=== PATIENT | female | born 1975 | race Caucasian/White ===

== ENCOUNTER 2017-05-25 03:02 | Emergency (ER) | payer OTHER ==
[~2017-05-25] VITALS: Ht 162.6 cm; Wt 67.6 kg
[2017-05-25 03:17] VITALS: BP 163/111
== END 2017-05-25 04:27 | disposition left against medical advice (07) ==
LOC: ED 03:02
DX: Z53.21 Procedure and treatment not carried out due to patient leaving prior to being seen by health care provider (principal)

== ENCOUNTER 2018-07-04 08:57 | Emergency (ER) | payer OTHER ==
[~2018-07-04] VITALS: Ht 162.6 cm; Wt 67.6 kg
[2018-07-04 08:59] VITALS: Ht 162.6 cm; Wt 67.6 kg
[2018-07-04 10:43] VITALS: BP 138/71
== END 2018-07-04 10:43 | disposition home or self-care (01) ==
LOC: ED 08:57
DX: T39.315A Adverse effect of propionic acid derivatives, initial encounter (principal); Y92.89 Other specified places as the place of occurrence of the external cause; F17.210 Nicotine dependence, cigarettes, uncomplicated
CPT/HCPCS: J1200; J2930

== ENCOUNTER 2018-07-21 17:07 | Emergency (ER) | payer OTHER ==
[~2018-07-21] VITALS: Ht 162.6 cm; Wt 68.0 kg
[2018-07-21 17:23] VITALS: BP 148/102; Ht 162.6 cm; Wt 68.0 kg
== END 2018-07-21 20:08 | disposition left against medical advice (07) ==
LOC: ED 17:07
DX: Z53.21 Procedure and treatment not carried out due to patient leaving prior to being seen by health care provider (principal)

== ENCOUNTER 2018-07-29 13:40 | Emergency (ER) | payer OTHER ==
[~2018-07-29] VITALS: Ht 167.6 cm; Wt 44.3 kg
[2018-07-29 13:55] VITALS: Ht 167.6 cm; Wt 44.3 kg
[2018-07-29 15:15] LABS: CALCIUM 8.9 mg/dL (8.5-10.1); CARBON DIOXIDE 22.1 mmol/L (21-32); CHLORIDE SERUM 102 mmol/L (98-107); GFR1 > 60 mL/min; GLUCOSE SERUM 123 mg/dL (74-106); POTASSIUM SERUM 3.1 mmol/L (3.5-5.1); SODIUM SERUM 137 mmol/L (136-145)
[2018-07-29 16:06] VITALS: BP 136/92
[2018-07-29 17:03] LABS: AMPHETAMINE QUAL UR POSITIVE (See below)
== END 2018-07-29 16:30 | disposition home or self-care (01) ==
LOC: ED 13:40
PROVIDERS: Emergency Medicine
DX: R22.0 Localized swelling, mass and lump, head (principal); T39.015A Adverse effect of aspirin, initial encounter; I10 Essential (primary) hypertension; Z88.6 Allergy status to analgesic agent; Y92.89 Other specified places as the place of occurrence of the external cause
CPT/HCPCS: J1200; J2930; J3490; J7030

== ENCOUNTER 2019-09-01 15:11 | Emergency (ER) | payer OTHER ==
[~2019-09-01] VITALS: Ht 162.6 cm; Wt 71.7 kg
[2019-09-01 15:25] VITALS: Ht 162.6 cm; Wt 71.7 kg
[2019-09-01 17:28] LABS: BASOPHIL % 0.5 % (0-2); CALCIUM 8.5 mg/dL (8.5-10.1); CARBON DIOXIDE 29.2 mmol/L (21-32); CHLORIDE SERUM 101 mmol/L (98-107); CREATININE SERUM 0.8 mg/dL (0.6-1.0); GFR1 > 60 mL/min; GLUCOSE SERUM 106 mg/dL (74-106); PLATELET COUNT 274 x10^3mcL (130-400); POTASSIUM SERUM 3.5 mmol/L (3.5-5.1); SODIUM SERUM 138 mmol/L (136-145)
[2019-09-01 17:31] LABS: UA SPECIFIC GRAVITY >=1.030 (1.005-1.035); microscopic required? YES; urine erythrocyte 1+ (NEGATIVE)
[2019-09-01 17:33] LABS: RED CELL DISTRIBUTION WIDTH 14.6 % (11.5-14.5)
[2019-09-01 17:35] LABS: AMPHETAMINE QUAL UR POSITIVE (See below)
[2019-09-01 17:40] LABS: ALBUMIN 4.1 g/dL (3.4-5.0); ALKALINE PHOSPHATASE 88 U/L (46-116); ALT/SGPT 79 U/L (14-59); AST/SGOT 45 U/L (15-37); BILIRUBIN TOTAL 0.3 mg/dL (0.20-1.00); CHOLESTEROL 168 mg/dL (<200); HDL CHOLESTEROL 48 mg/dL (40-60); LIPASE 239 IU/L (73-393); MAGNESIUM 2.1 mg/dL (1.8-2.4); T4(THYROXINE) 8.2 ug/dL (4.7-13.3); TOTAL PROTEIN, SERUM 7.8 g/dL (6.4-8.2)
[2019-09-01 19:18] VITALS: BP 121/82
== END 2019-09-01 19:18 | disposition home or self-care (01) ==
LOC: ED 15:11
PROVIDERS: Emergency Medicine
DX: K76.0 Fatty (change of) liver, not elsewhere classified (principal); F19.10 Other psychoactive substance abuse, uncomplicated; F10.20 Alcohol dependence, uncomplicated; I10 Essential (primary) hypertension; F17.210 Nicotine dependence, cigarettes, uncomplicated; Z71.6 Tobacco abuse counseling; Z88.6 Allergy status to analgesic agent; Z88.8 Allergy status to other drugs, medicaments and biological substances
CPT/HCPCS: 82962; 99406; G0480; J3490; Q0092

== ENCOUNTER 2019-09-05 09:50 | Emergency (ER) | payer OTHER ==
[~2019-09-05] VITALS: Ht 162.6 cm; Wt 72.1 kg
[2019-09-05 09:55] VITALS: Ht 162.6 cm; Wt 72.1 kg
[2019-09-05 12:21] VITALS: BP 147/93
== END 2019-09-05 12:24 | disposition home or self-care (01) ==
LOC: ED 09:50
DX: S20.222A Contusion of left back wall of thorax, initial encounter (principal); F10.239 Alcohol dependence with withdrawal, unspecified; I10 Essential (primary) hypertension; Z88.6 Allergy status to analgesic agent; Z88.8 Allergy status to other drugs, medicaments and biological substances; W11.XXXA Fall on and from ladder, initial encounter; Y93.89 Activity, other specified; Y92.89 Other specified places as the place of occurrence of the external cause; Y99.8 Other external cause status

== ENCOUNTER 2020-04-02 23:30 | Emergency (ER) | payer OTHER ==
[~2020-04-02] VITALS: Ht 162.6 cm; Wt 70.8 kg
[2020-04-02 23:33] VITALS: BP 147/96; Ht 162.6 cm; Wt 70.8 kg
[2020-04-03 00:30] LABS: BASOPHIL % 0.7 % (0-2); PLATELET COUNT 239 x10^3mcL (130-400); RED CELL DISTRIBUTION WIDTH 13.8 % (11.5-14.5)
[2020-04-03 00:36] LABS: CALCIUM 9.6 mg/dL (8.5-10.1); CARBON DIOXIDE 25.9 mmol/L (21-32); CHLORIDE SERUM 100 mmol/L (98-107); CREATININE SERUM 0.9 mg/dL (0.6-1.0); GFR1 > 60 mL/min; GLUCOSE SERUM 131 mg/dL (74-106); POTASSIUM SERUM 4.2 mmol/L (3.5-5.1); SODIUM SERUM 135 mmol/L (136-145)
[2020-04-03 00:41] LABS: ALKALINE PHOSPHATASE 106 U/L (46-116); ALT/SGPT 143 U/L (14-59); AST/SGOT 125 U/L (15-37); BILIRUBIN TOTAL 0.3 mg/dL (0.20-1.00); TOTAL PROTEIN, SERUM 7.5 g/dL (6.4-8.2)
== END 2020-04-03 00:56 | disposition left against medical advice (07) ==
LOC: ED 23:30
PROVIDERS: Emergency Medicine
DX: R07.89 Other chest pain (principal); I10 Essential (primary) hypertension; Z88.6 Allergy status to analgesic agent; Z88.8 Allergy status to other drugs, medicaments and biological substances
CPT/HCPCS: 36415; Q0092

== ENCOUNTER 2020-10-19 18:17 | Emergency (ER) | payer OTHER ==
[~2020-10-19] VITALS: Ht 162.6 cm; Wt 71.7 kg
[2020-10-19 18:24] VITALS: BP 120/68; Ht 162.6 cm; Wt 71.7 kg
== END 2020-10-19 20:51 | disposition left against medical advice (07) ==
LOC: ED 18:17
DX: Z53.21 Procedure and treatment not carried out due to patient leaving prior to being seen by health care provider (principal)